=== PATIENT | male | born 1955 | race Caucasian/White ===

== ENCOUNTER 2018-06-20 11:47 | Observation (INO) ==
--- NOTE | 2018-06-20 13:16 | ED ---
HPI General Chief Complaint: Chest Pain Stated Complaint: Respiratory complaint Time Seen by Provider: 06/20/18 12:57 Source: patient Mode of arrival: ambulatory Limitations: no limitations History of Present Illness HPI narrative: The patient is a 62-year-old male who presents to the emergency department via private vehicle for chest pain. The patient complains of chest pain that is more chest tightness, substernal, nonradiating, and breath and diaphoresis. The pain is worse with exertion, alleviated at rest, and when present can last 30 minutes to an hour. The patient has been having the symptoms for the last 1-2 weeks. The patient also notes a recent history of elevated blood pressure, also notes a history of borderline hyperlipidemia. He quit smoking 20 years ago, denies any known history of CAD or diabetes. He does have a mother with a history of hypertension but no significant family history for early coronary artery disease. The patient's symptoms are moderate. MD complaint: chest pain STEMI Alert: No Onset (ago): week(s) Duration: intermittent Onset: during exertion Pain location: substernal Severity: moderate Severity scale (1-10): 6 Quality: tightness Pain radiation: none Relieving factors: rest Exacerbating factors: nothing Associated symptoms: diaphoresis and dyspnea Treatments prior to arrival chest pain: none Related Data Home Medications Medication Instructions Recorded Confirmed No Known Home Medications 06/20/18 06/20/18 Allergies Allergy/AdvReac Type Severity Reaction Status Date / Time Sulfa (Sulfonamide Allergy Hives Verified 06/20/18 13:09 Antibiotics) Review of Systems ROS: all other systems reviewed are negative [facility] Medical History Medical History Testicular cancer (Acute) Social History Social History Substance History: No History of Abuse Second Hand Smoke Exposure: No Smoking Status: Former smoker How Often Do You Have a Drink Containing Alcohol: Never Recent Travel in [facility] within the Last 8 Weeks: No Recent Out of Country Travel within the Last 8 Weeks: No Immunization History Tetanus Immunization: <5 Years Hx Influenza Vaccine This Season: No Exam Narrative Exam Narrative: GENERAL: Awake, alert, pleasant 62-year-old male who appears his stated age and is in no acute respiratory distress. SKIN: Focused skin assessment warm/dry. HEAD: Atraumatic. Normocephalic. EYES: Pupils equal and round. No scleral icterus. No injection or drainage. ENT: No nasal bleeding or discharge. Mucous membranes pink and moist. NECK: Trachea midline. No JVD. CARDIOVASCULAR: Regular rate and rhythm. No murmur appreciated. RESPIRATORY: No accessory muscle use. Clear to auscultation. Breath sounds equal bilaterally. GASTROINTESTINAL: Abdomen soft, non-tender, nondistended. No epigastric tenderness. No guarding or rigidity. MUSCULOSKELETAL: No obvious deformities. No clubbing. No cyanosis. No edema. NEUROLOGICAL: Awake and alert. No obvious cranial nerve deficits. Motor grossly within normal limits. Normal speech. Nonfocal. PSYCHIATRIC: Appropriate mood and affect; insight and judgment normal. Course Initial Documented Vital Signs Temperature 98.0 F 06/20/18 11:50 Pulse Rate 94 H 06/20/18 11:50 Respiratory Rate 18 06/20/18 11:50 Blood Pressure 166/97 H 06/20/18 11:50 Pulse Oximetry 97 06/20/18 11:50 Last Documented Vital Signs Temperature 98.0 F 06/20/18 11:50 Pulse Rate 83 06/20/18 14:33 Respiratory Rate 19 06/20/18 14:33 Blood Pressure 175/84 H 06/20/18 14:33 Pulse Oximetry 99 06/20/18 14:33 Medical Decision Making MDM Narrative Medical decision making narrative: IV was established, labs are drawn and sent, and the patient was placed on cardiac telemetry monitoring and continuous pulse oximetry monitoring. EKG was ordered and interpreted. Chest x-ray was obtained. The patient was administered aspirin 162 mg orally. The patient's chest x-ray is unremarkable. The patient's initial troponin was less than 0.02. The patient does have chest pain with an exertional component, therefore , will be a 23-hour observation to the chest pain center. The patient was evaluated by the fishing worker, Dr. Bonds, who agrees with 23-hour observation to the chest pain center. Medical Screen Exam Complete: Yes Emergency Medical Condition: Yes Differential Diagnosis Differential Diagnosis: Differential diagnosis includes acute coronary syndrome , angina, STEMI, deconditioning, cardiomyopathy, pulmonary embolism, GERD, esophageal spasm, dissection. Lab Data Lab results reviewed: Yes I reviewed the patient's lab results. Result diagrams: 06/20/18 13:29 06/20/18 13:29 Lab Results 06/20/18 06/20/18 06/20/18 Range/Units 13:29 13: 13:29 WBC 7.6 (4.0-11.0) th/mm3 RBC 4.83 (4.50-5.90) mil/mm3 Hgb 15.1 (13.0-17.0) gm/dL Hct 44.9 (39.0-51.0) % MCV 93.0 (80.0-100.0) fL MCH 31.2 (27.0-34.0) pg MCHC 33.6 (32.0-36.0) % RDW 13.0 (11.6-17.2) % Plt Count 250 (150-450) th/mm3 MPV 7.4 (7.0-11.0) fL Neut % (Auto) 59.6 (16.0-70.0) % Lymph % (Auto) 26.5 (9.0-44.0) % [place] % (Auto) 10.4 H (0.0-8.0) % Eos % (Auto) 2.5 (0.0-4.0) % Baso % (Auto) 1.0 (0.0-2.0) % Neut # (Auto) 4.5 (1.8-7.7) th/mm3 Lymph # (Auto) 2.0 (1.0-4.8) th/mm3 [place] # (Auto) 0.8 (0.0-0.9) th/mm3 Eos # (Auto) 0.2 (0.0-0.4) th/mm3 Baso # (Auto) 0.1 (0.0-0.2) th/mm3 WBC Differential . Differential Comment Auto diff final PT 9.8 (9.8-11.6) sec INR 1.0 Ratio APTT 27.0 (24.3-30.1) sec Sodium 141 (136-145) meq/L Potassium 4.1 (3.5-5.1) meq/L Chloride 106 (98-107) meq/L Carbon Dioxide 28.1 (21.0-32.0) meq/L Anion Gap 7 (5-15) meq/L BUN 9 (7-18) mg/dL Creatinine 1.19 (0.60-1.30) mg/dL Estimated GFR 62 L (>89) mL/min Random Glucose 105 (74-106) mg/dL Calcium 8.9 (8.5-10.1) mg/dL Magnesium 2.2 (1.5-2.5) mg/dL Total Bilirubin 0.4 (0.2-1.0) mg/dL AST 28 (15-37) U/L ALT 36 (12-78) U/L Alkaline Phosphatase 76 (45-117) U/L Total Creatine Kinase 138 (39-308) U/L CK-MB (CK-2) 2.5 (0.5-3.6) ng/mL Troponin I Less than 0.02 L (0.02-0.05) ng/mL Total Protein 7.8 (6.4-8.2) g/dL Albumin 4.0 (3.4-5.0) g/dL Lipase 122 (73-393) U/L Imaging Data Attestation: I personally reviewed and interpreted this imaging study as follows : My impression: No acute cardia pulmonary disease Radiologist's impression: Chest X-Ray 06/20/18 13:10 CONCLUSION: 1. No acute cardiopulmonary disease. ECG Data EKG Prior to Arrival: No Attestation: I personally reviewed and interpreted this ECG as follows: Interpretation: EKG reveals normal sinus rhythm with a rate 80 Q waves noted in lead V1, V2, and V3. Discharge Plan Discharge Disposition Patient Disposition: 30 Still Patient Discharge Condition Condition: Stable Discharge Details Diagnosis: Chest pain Physicians Team ED Provider: Carmelo Llamas Primary Care Provider: Wilian Samaniego Attending Provider: Wilian Bonds Discharge Interventions Interventions: Vital Signs Last Done: 06/20/18 11:50 Status ED Status: Admitted Observation Patient
--- NOTE | 2018-06-20 13:40 | XR ---
EXAM DATE: 06/20/2018 1:10 PM EDT AGE/SEX: 62 years / Male INDICATIONS: Chest pain with mid sternal pressure x 2 days. CLINICAL DATA: This is the patient's initial encounter. Patient reports that signs and symptoms have been present for 2 days and indicates a pain score of 4/10. MEDICAL/SURGICAL HISTORY: None. None. COMPARISON: No prior exams available for comparison. FINDINGS: A single AP view of the chest demonstrates the lungs to be symmetrically aerated without evidence of mass, infiltrate or effusion. The cardiomediastinal contours are unremarkable. Osseous structures a re intact. CONCLUSION: 1. No acute cardiopulmonary disease. Electronically signed by: Nabil Jesus MD 06/20/2018 1:39 PM EDT
[2018-06-20 13:50] LABS: Baso # (Auto) 0.1 th/mm3 (0.0-0.2); Eos # (Auto) 0.2 th/mm3 (0.0-0.4); Eos % (Auto) 2.5 % (0.0-4.0); Hematocrit 44.9 % (39.0-51.0); Hemoglobin 15.1 gm/dL (13.0-17.0); Lymph % (Auto) 26.5 % (9.0-44.0); Mean Corpuscular HGB Conc 33.6 % (32.0-36.0); Mean Corpuscular Hemoglobin 31.2 pg (27.0-34.0); Mean Platelet Volume 7.4 fL (7.0-11.0); Mono # (Auto) 0.8 th/mm3 (0.0-0.9); Mono % (Auto) 10.4 % (0.0-8.0); Neut # (Auto) 4.5 th/mm3 (1.8-7.7); Neut % (Auto) 59.6 % (16.0-70.0); Platelet Count 250 th/mm3 (150-450); Red Blood Count 4.83 mil/mm3 (4.50-5.90); White Blood Count 7.6 th/mm3 (4.0-11.0)
[2018-06-20 13:57] LABS: Alanine Aminotransferase 36 U/L (12-78); Anion Gap 7 meq/L (5-15); Aspartate Aminotransferase 28 U/L (15-37); Blood Urea Nitrogen 9 mg/dL (7-18); Calcium 8.9 mg/dL (8.5-10.1); Carbon Dioxide 28.1 meq/L (21.0-32.0); Chloride 106 meq/L (98-107); Glomerular Filtration Rate 62 mL/min (>89); Glucose,Random 105 mg/dL (74-106); Lipase 122 U/L (73-393); Magnesium 2.2 mg/dL (1.5-2.5); Potassium 4.1 meq/L (3.5-5.1); Sodium 141 meq/L (136-145)
[2018-06-20 13:58] LABS: Prothrombin Time 9.8 sec (9.8-11.6)
[2018-06-20 14:01] LABS: Alkaline Phosphatase 76 U/L (45-117); Creatine Kinase 138 U/L (39-308); Total Protein 7.8 g/dL (6.4-8.2)
[2018-06-20 14:13] LABS: Creatine Kinase MB 2.5 ng/mL (0.5-3.6)
[2018-06-20] MEDS ORDERED: ALPRAZolam 0.25 MG Tablet PO PRN (15:35)
[2018-06-20] MEDS ORDERED: Acetaminophen 500 MG Tablet PO PRN (15:38)
[2018-06-20] MEDS: Lisinopril 10 MG Tablet PO SCH (15:52)
--- NOTE | 2018-06-20 16:15 | P.HPCA ---
History of Present Illness Primary Care Physician: Wilian Samaniego MD Chief Complaint: Chest pain History of Present Illness: This is a 62-year-old male history of borderline hyperlipidemia and recent elevated blood pressures that presents to ED via private vehicle with his with complaint of having chest discomfort intermittently for anywhere from 6 months to a year. Initially was very random and very rare. Over the last couple weeks it happens with exertional activities which may be yard work. 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 When it occurs it makes him short of breath. When he stops activity it will resolve anywhere from 15 minutes to 30 minutes. The longest the symptoms have lasted to have been about an hour. His also states that she has noticed similar symptoms in the meantime possibly even while laying in bed the patient really does not recall this. Cannot recall prior cardiac workup. Denies family history of CAD. Quit smoking 20 years ago. States he was told he had borderline hyperlipidemia but never medicated for this and has done okay with diet control. Never been diagnosed with hypertension but states that his blood pressure readings have been somewhat elevated when checking at various grocery stores and pharmacies. Denies recent illness. Denies fevers or chills. Also admits to being under a lot of stress. States he has been working more than he would have liked to. Denies being diagnosed hypertension, diabetes, CAD. States he was told he had borderline hyperlipidemia but never medicated. Quit smoking 20 years ago but prior to that smoked 1 pack of cigarettes daily for about 15 years. Denies family history of CAD. - Diagnosis (1) Chest pain (2) Hypertension Review of Systems General: Patient denies fevers, chills, and recent travel. HEENT: Patient denies headache, sore throat, difficulty swallowing. Cardiovascular: Has the chest discomfort as mentioned above. Denies sensation of heart beating rapidly or irregularly. No syncope. Denies diaphoresis per Respiratory: He becomes short of breath. Denies inspirational chest discomfort. Denies coughing wheezing or hemoptysis. GI: Patient denies nausea, vomiting, diarrhea, abdominal pain, bloody stools. Musculoskeletal: Patient denies joint pain or edema. Denies calf pain or edema. Neurovascular: Patient denies numbness, tingling, weakness in extremities. Denies headache. Endocrine: Denies polyuria and polydipsia. Hematologic: Denies easy bruising. Skin: Denies rash or itching. PMFSH - History History Provided By: Patient - Medical History Medical History: Medical History (Last Updated 06/20/18 @ 13:06 by Divya Em) Testicular cancer - Tobacco History Second Hand Smoke Exposure: No Tobacco Use In Past 30 Days: No Smoking Status: Former smoker - Alcohol History How Often Do You Have a Drink Containing Alcohol: Never - Substance Use History Substance History: No History of Abuse - Travel History Recent Travel in the [place] Within the Last 8 Weeks: No Recent Travel Out of the Country Within the Last 8 Weeks: No - Immunization History Tetanus Immunization: <5 Years Hx Influenza Vaccine This Season: No Medications and Allergies Active Medications: Active Medications Acetaminophen (Tylenol) 500 mg PO Q6H PRN PRN Reason: pain scale 1-5 Hydrocodone Bitart/Acetaminophen ([place] 7.5/325) 1 tab PO Q6H PRN PRN Reason: pain scale 6-10 Albuterol (Duoneb Neb (Prn)) 1 ampul NEB Q4HR NEB PRN PRN Reason: SHORTNESS OF BREATH/WHEEZING Alprazolam (Xanax) 0.25 mg PO Q8H PRN PRN Reason: ANXIETY Aspirin (Aspirin) 325 mg PO DAILY CHUCK Clonidine HCl (Catapres) 0.1 mg PO Q6H PRN PRN Reason: SBP >165 OR DBP > 110 Lisinopril (Prinivil) 10 mg PO DAILY CHUCK Pantoprazole Sodium (Protonix) 40 mg PO DAILY CHUCK Sodium Chloride (Ns Flush) 2 ml IV.FLUSH BID CHUCK Sodium Chloride (Ns Flush) 2 ml IV.FLUSH PRN PRN PRN Reason: FLUSH AFTER USING IV ACCESS Allergies Allergy/AdvReac Type Severity Reaction Status Date / Time Sulfa (Sulfonamide Allergy Hives Verified 06/20/18 13:09 Antibiotics) Home Medications Medication Instructions Recorded Confirmed Type No Known Home Medications 06/20/18 06/20/18 History Exam Vital signs: Vital Signs 06/20/18 11:50 06/20/18 13:13 06/20/18 14:33 Temperature 98.0 F Pulse Rate 94 H 87 83 Respiratory Rate 18 21 19 Blood Pressure 166/97 H 177/81 H 175/84 H Pulse Oximetry 97 97 99 Intake & Output 06/19/18 06/20/18 06/20/18 18:59 06:59 18:59 Weight 81.647 kg Narrative: GENERAL: This is a well-nourished, well-developed patient, in no apparent distress. Patient speaks in clear complete sentences. Patient is pleasant. HEENT: Head is atraumatic and normocephalic. Neck is supple without lymphadenopathy and trachea is midline. No JVD or carotid bruits. CARDIOVASCULAR: Regular rate and rhythm without murmurs, gallops, or rubs. RESPIRATORY: Clear to auscultation. Breath sounds equal bilaterally. No wheezes , rales, or rhonchi. Chest wall is nontender. No use of accessory muscles. GASTROINTESTINAL: Abdomen is nontender, nondistended. Abdomen soft. No obvious pulsatile mass or bruit. No CVA tenderness. Strong femoral pulses bilaterally. Normal bowel sounds in all quadrants. MUSCULOSKELETAL: Patient is moving upper and lower extremities freely. No calf tenderness or edema, no Homans sign. Strong pulses in upper and lower extremities. NEUROLOGICAL: Patient is alert and oriented. Cranial nerves 2-12 are grossly intact. No focal deficits and speech is clear. SKIN: No rash and turgor is normal. Results 06/20/18 13:29 06/20/18 13:29 Cardiac Enzymes 06/20/18 Range/Units 13:29 AST 28 (15-37) U/L CK-MB (CK-2) 2.5 (0.5-3.6) ng/mL Troponin I Less than 0.02 L (0.02-0.05) ng/mL Coagulation 06/20/18 Range/Units 13:29 PT 9.8 (9.8-11.6) sec APTT 27.0 (24.3-30.1) sec CBC 06/20/18 Range/Units 13:29 WBC 7.6 (4.0-11.0) th/mm3 RBC 4.83 (4.50-5.90) mil/mm3 Hgb 15.1 (13.0-17.0) gm/dL Hct 44.9 (39.0-51.0) % Plt Count 250 (150-450) th/mm3 Neut # (Auto) 4.5 (1.8-7.7) th/mm3 Lymph # (Auto) 2.0 (1.0-4.8) th/mm3 [place] # (Auto) 0.8 (0.0-0.9) th/mm3 Eos # (Auto) 0.2 (0.0-0.4) th/mm3 Baso # (Auto) 0.1 (0.0-0.2) th/mm3 Comprehensive Metabolic Panel 06/20/18 Range/Units 13:29 Sodium 141 (136-145) meq/L Potassium 4.1 (3.5-5.1) meq/L Chloride 106 (98-107) meq/L Carbon Dioxide 28.1 (21.0-32.0) meq/L BUN 9 (7-18) mg/dL Creatinine 1.19 (0.60-1.30) mg/dL Calcium 8.9 (8.5-10.1) mg/dL AST 28 (15-37) U/L ALT 36 (12-78) U/L Alkaline Phosphatase 76 (45-117) U/L Total Protein 7.8 (6.4-8.2) g/dL Albumin 4.0 (3.4-5.0) g/dL Intake and Output 06/20/18 06/20/18 06/20/18 06:59 14:59 22:59 Other: Weight 81.647 kg Patient Weight 06/21/18 06:59 Weight 81.647 kg - Imaging and Cardiology Imaging: Impressions Chest X-Ray 06/20/18 13:10 CONCLUSION: 1. No acute cardiopulmonary disease. EKG interpretations - EKG EKG shows: sinus rhythm (Initial EKG is sinus rhythm with poor R wave progression in V1, V2, V3 without significant ST segment depressions or elevations.) Caprini VTE Risk Assessment Caprini VTE Risk Assessment: Moderate/High Risk (score >= 2) Caprini Risk Assessment Model: Point Value = 1 Point Value = 2 Point Value = 3 Point Value = 5 Age 41-60 Minor surgery BMI > 25 kg/m2 Swollen legs Varicose veins or History of unexplained or recurrent spontaneous Oral contraceptives or hormone replacement Sepsis (< 1 month) Serious lung disease, including pneumonia (< 1 month) Abnormal pulmonary function Acute myocardial infarction Congestive heart failure (< 1 month) History of inflammatory bowel disease Medical patient at bed rest Age 61-74 Arthroscopic surgery Major open surgery (> 45 min) Laparoscopic surgery (> 45 min) Malignancy Confined to bed (> 72 hours) Immobilizing plaster cast Central venous access Age >= 75 History of VTE Family history of VTE Factor V Leiden Prothrombin [id number] Lupus anticoagulant Anticardiolipin antibodies Elevated serum homocysteine Heparin-induced thrombocytopenia Other congenital or acquired thrombophilia Stroke (< 1 month) Elective arthroplasty Hip, pelvis, or leg fracture Acute spinal cord injury (< 1 month) Prophylaxis Regimen: Total Risk Factor Score Risk Level Prophylaxis Regimen 0-1 Low Early ambulation 2 Moderate Order ONE of the following: *Sequential Compression Device (SCD) *Heparin 5000 units SQ BID 3-4 Higher Order ONE of the following medications: *Heparin 5000 units SQ TID *Enoxaparin/Lovenox 40 mg SQ daily (WT < 150 kg, CrCl > 30 mL/min) *Enoxaparin/Lovenox 30 mg SQ daily (WT < 150 kg, CrCl > 10-29 mL/min) *Enoxaparin/Lovenox 30 mg SQ BID (WT < 150 kg, CrCl > 30 mL/min) AND/OR *Sequential Compression Device (SCD) 5 or more Highest Order ONE of the following medications: *Heparin 5000 units SQ TID (Preferred with Epidurals) *Enoxaparin/Lovenox 40 mg SQ daily (WT < 150 kg, CrCl > 30 mL/min) *Enoxaparin/Lovenox 30 mg SQ daily (WT < 150 kg, CrCl > 10-29 mL/min) *Enoxaparin/Lovenox 30 mg SQ BID (WT < 150 kg, CrCl > 30 mL/min) AND *Sequential Compression Device (SCD) Assessment and Plan - Assessment (1) Chest pain Code(s): R07.9 - Chest pain, unspecified Status: Acute (2) Hypertension Code(s): I10 - Essential (primary) hypertension Status: Acute - Plan * Chest pain: Patient will continue to have serial cardiac enzymes and EKGs for ruling out purposes. He has been seen by Dr. Bonds of cardiology and chest pain center. He will have a nuclear ETT in the morning if he rules out. He will be discharged home if the stress test is nonischemic with instructions to follow-up with PCP. Return to ED for interval issues. States he had borderline hyperlipidemia, should have this reevaluated with PCP. * Hypertension: Patient states his blood pressure have been running low but higher more recently. His blood pressure in the ED was as high as a 177 systolic. We will start lisinopril and as needed Catapres. Continue to monitor. Patient is stable at this time. He is agreeable to this plan. (1) Chest pain Qualifiers: Chest pain type: unspecified Qualified Code(s): R07.9 - Chest pain, unspecified
--- NOTE | 2018-06-20 16:29 | ECG ---
Date Performed: 06/20/2018 Time Performed: 12:02:15 PTAGE: 62 years EKG: Sinus rhythm ANTEROSEPTAL MYOCARDIAL INFARCTION ABNORMAL ECG NO PREVIOUS TRACING DOCTOR: Fito Heard Interpretating Date/Time 06/20/2018 16:27:15
[2018-06-20 17:21] LABS: Creatine Kinase 121 U/L (39-308)
--- NOTE | 2018-06-20 19:44 | ECG ---
Date Performed: 06/20/2018 Time Performed: 16:30:04 PTAGE: 62 years EKG: Sinus rhythm NORMAL ECG Compared to prior electrocardiogram, Poor R wave progression is no longer present. PREVIOUS TRACING : 06/20/2018 12.02 DOCTOR: Fito Heard Interpretating Date/Time 06/20/2018 19:42:41
--- NOTE | 2018-06-20 21:27 | ECG ---
Date Performed: 06/20/2018 Time Performed: 19:34:58 PTAGE: 62 years EKG: Sinus rhythm NORMAL ECG No significant change from prior electrocardiogram. PREVIOUS TRACING : 06/20/2018 16.30 DOCTOR: Fito Heard Interpretating Date/Time 06/20/2018 21:27:26
[2018-06-21 03:54] VITALS: RESP 16
[2018-06-21 07:23] VITALS: TEMP 98.7; O2SAT 95
[2018-06-21] MEDS ORDERED: Aspirin 325 MG Tablet PO SCH (09:00)
[2018-06-21] MEDS: Lisinopril 10 MG Tablet PO SCH (10:00)
--- NOTE | 2018-06-21 11:10 | TR ---
Date Performed: 06/21/2018 Time Performed: 08:59:54 DOCTOR: Wilian Bonds DRUG LIST: CLINICAL HISTORY: REASON FOR TEST: Chest pain REASON FOR ENDING: OBSERVATION: CONCLUSION: NUC ETT. NO CP. HE WAS SOB BUT DENIED CP.Maximum PL=311 % Max HR Achieved=91.0% Maxi mum WC=947/74 Total Exercise Time=3:25 COMMENTS:
--- NOTE | 2018-06-21 12:02 | NM ---
EXAM DATE: 06/21/2018 8:45 AM EDT AGE/SEX: 62 years / Male INDICATIONS: Angina. . Mid chest pain for one year. CLINICAL DATA: This is the patient's initial encounter. Patient reports that signs and symptoms have been present for > 1 year and indicates a pain score of 3/10. MEDICAL/SURGICAL HISTORY: Carcinoma, testicular. None. COMPARISON: No prior exams available for comparison. No external comparison. DOSE: 8.8 mCi Tc 99m Myoview at rest 25.5 mCi [id number] at stress REST HEART RATE: 114 BPM TARGET HEART RATE: 134 BPM MAX HEART RATE: 143 BPM REST BLOOD PRESSURE: 122/64 mmHg MAX BLOOD PRESSURE: 148/64 mmHg EJECTION FRACTION: >70 % TECHNIQUE: The patient underwent upright treadmill exercise in the chest pain center. Continuous EC G tracing was monitored during stress. Gated SPECT imaging was performed after stress, and conventio nal SPECT imaging was performed at rest. The examination was performed on a SPECT/CT scanner, both a ttenuation-corrected and non-corrected datasets were reviewed. FINDINGS: Distribution: The maximum perfused segment at stress is in the septal wall. Perfusion: The pattern of perfusion at stress is within normal limits. Gated Study: There are intact wall motion and wall thickening without hypokinetic or dyskinetic segme nts. The ejection fraction is calculated at >70%. RISK CATEGORY: Low (<1% Annual Motality Rate) CONCLUSION: 1. No reversible perfusion defect to indicate stress-induced myocardial ischemia identified. Electronically signed by: Marcos Burkett MD 06/21/2018 12:00 PM EDT
[2018-06-21 12:14] VITALS: BP 137/77; PULSE 82
== END 2018-06-21 13:49 | disposition home or self-care (01) ==
LOC: NEDA 11:47 → NEPE 11:47 → NEDA 17:10 → NEPGCP 17:14